=== PATIENT | female | born 1950 | race Caucasian/White ===

== ENCOUNTER 2017-10-01 09:30 | Outpatient (RCR) | payer MEDICARE, OTHER ==
[2012-03-29 09:00] VITALS: BP 142/88
[~2017-10-01 09:30] MED LIST: AVONEX33 MCG IM; CLONAZEPAM0.5 M1 PO; LEVEMIR100 U/ML; LISINOPRIL20 MG PO; LOW DOSE ASPIRI81 MG PO; MULTIVITAMIN FO1 CAP PO; NEURONTIN300 MG PO; NORCO 325 MG-51 TAB PO; NOVOLOG FLEX100 U/ML; PERCOCET 325 MG1 TA2 PO; SERAX PO; SOMA250 MG PO; SYNTHROID0.025 MG; ZANAFLEX4 M1 PO
== END 2017-10-01 10:00 | disposition still patient (30) ==
LOC: PT 09:30
DX: M54.9 Dorsalgia, unspecified (principal)
CPT/HCPCS: G8985-GP

== ENCOUNTER → 2018-11-23 | Outpatient (CLI) | payer MEDICARE, OTHER ==
[2018-11-22 11:23] VITALS: BP 111/70
[~2018-11-23] MED LIST changes: +B COMPLEX1 EACH PO; +CALCIUM 600 MG-1 TAB PO; +CHANTIX 0.5MG0.5 MG PO; +CRANBERRY500 M3 PO; +CYMBALTA30 M1 PO; +GLUCOPHAGE500 MG/TAB PO; +IPRATROPIUM BROM3 M1 IH; +MAGNESIUM CHLOR64 MG PO; +NATURAL VITAM1000 MG PO; +NATURE'S BLEN2000 IU PO; +NEURONTIN300 M1 PO; -NEURONTIN300 MG PO; +PRAVASTATIN SOD10 MG PO; +ROCEPHIN 2 G2 G/VIAL IV; +SERAX 10MG10 MG/CAP PO; -SERAX PO; +SINGULAIR PO; -SOMA250 MG PO; +SOMA350 M1 PO; -SYNTHROID0.025 MG; +SYNTHROID0.05 MG PO; +ULTRAM50 M1 PO; +VITAMIN E1000 UNI1 PO
[2018-11-23 11:56] LABS: HEMATOCRIT 37.5 % (37.0-47.0); MEAN PLATELET VOLUME 9.7 fl (7.4-10.4); RED CELL DISTRIBUTION WIDTH 13.1 % (11.5-14.5); WHITE BLOOD COUNT 6.8 K/mm3 (4.8-10.8)
[2018-11-23 12:17] LABS: ALBUMIN 3.8 g/dL (3.5-5.0); CALCIUM 9.4 mg/dL (8.4-10.2); POTASSIUM 4.1 mmol/L (3.6-5.0); TOTAL BILIRUBIN 0.3 mg/dL (0.2-1.3); TOTAL PROTEIN 6.6 g/dL (6.3-8.2)
== END ==
LOC: LAB 11:02
DX: M46.40 Discitis, unspecified, site unspecified (principal)

== ENCOUNTER → 2018-12-01 | Outpatient (CLI) | payer MEDICARE, OTHER ==
[2018-11-30 12:06] VITALS: BP 143/84
[2018-12-01 11:23] LABS: HEMATOCRIT 39.1 % (37.0-47.0); HEMOGLOBIN 12.6 g/dL (12.5-16.0); MEAN PLATELET VOLUME 9.5 fl (7.4-10.4); RED BLOOD COUNT 4.13 M/mm3 (4.10-5.30); RED CELL DISTRIBUTION WIDTH 13.6 % (11.5-14.5); WHITE BLOOD COUNT 6.8 K/mm3 (4.8-10.8)
[2018-12-01 11:26] LABS: ALBUMIN 3.8 g/dL (3.5-5.0); CALCIUM 9.6 mg/dL (8.4-10.2); POTASSIUM 4.4 mmol/L (3.6-5.0); TOTAL BILIRUBIN 0.4 mg/dL (0.2-1.3); TOTAL PROTEIN 6.8 g/dL (6.3-8.2)
== END ==
LOC: LAB 10:47
DX: M46.40 Discitis, unspecified, site unspecified (principal)

== ENCOUNTER → 2018-12-07 | Outpatient (CLI) | payer MEDICARE, OTHER ==
[2018-12-06 11:32] VITALS: BP 118/80
[2018-12-07 09:21] LABS: HEMOGLOBIN 12.3 g/dL (12.5-16.0); MEAN PLATELET VOLUME 10.3 fl (7.4-10.4); RED BLOOD COUNT 4.01 M/mm3 (4.10-5.30); RED CELL DISTRIBUTION WIDTH 13.8 % (11.5-14.5); WHITE BLOOD COUNT 6.2 K/mm3 (4.8-10.8)
[2018-12-07 09:26] LABS: ALBUMIN 3.7 g/dL (3.5-5.0); CALCIUM 9.4 mg/dL (8.4-10.2); POTASSIUM 4.6 mmol/L (3.6-5.0); TOTAL BILIRUBIN 0.3 mg/dL (0.2-1.3); TOTAL PROTEIN 6.5 g/dL (6.3-8.2)
== END ==
LOC: LAB 07:51
DX: M46.40 Discitis, unspecified, site unspecified (principal)

== ENCOUNTER → 2018-12-14 | Outpatient (CLI) | payer MEDICARE, OTHER ==
[2018-12-14 09:59] LABS: HEMATOCRIT 39.5 % (37.0-47.0); HEMOGLOBIN 12.7 g/dL (12.5-16.0); MEAN PLATELET VOLUME 9.9 fl (7.4-10.4); RED BLOOD COUNT 4.2 M/mm3 (4.10-5.30); WHITE BLOOD COUNT 5.2 K/mm3 (4.8-10.8)
[2018-12-14 10:06] LABS: CALCIUM 9.3 mg/dL (8.4-10.2); POTASSIUM 4.3 mmol/L (3.6-5.0); TOTAL BILIRUBIN 0.4 mg/dL (0.2-1.3)
[2018-12-16 09:05] VITALS: BP 115/64
== END ==
LOC: LAB 09:20
DX: M46.40 Discitis, unspecified, site unspecified (principal)

== ENCOUNTER → 2018-12-21 | Outpatient (CLI) | payer MEDICARE, OTHER ==
[2018-12-20 09:28] VITALS: BP 136/86
[2018-12-21 09:45] LABS: HEMATOCRIT 38.1 % (37.0-47.0); HEMOGLOBIN 12.2 g/dL (12.5-16.0); MEAN PLATELET VOLUME 9.6 fl (7.4-10.4); RED BLOOD COUNT 4.02 M/mm3 (4.10-5.30); RED CELL DISTRIBUTION WIDTH 14.2 % (11.5-14.5); WHITE BLOOD COUNT 6.9 K/mm3 (4.8-10.8)
[2018-12-21 10:18] LABS: ALBUMIN 3.7 g/dL (3.5-5.0); CALCIUM 9.1 mg/dL (8.4-10.2); POTASSIUM 4.4 mmol/L (3.6-5.0); TOTAL BILIRUBIN 0.3 mg/dL (0.2-1.3); TOTAL PROTEIN 6.3 g/dL (6.3-8.2)
== END ==
LOC: LAB 09:30
PROVIDERS: Family Medicine
DX: M46.40 Discitis, unspecified, site unspecified (principal)

== ENCOUNTER 2018-12-24 09:06 | Outpatient (RCR) | payer MEDICARE, OTHER ==
[2018-11-17 11:35] VITALS: BP 132/83
[2018-11-18 10:59] VITALS: BP 133/101
[2018-11-19 11:02] VITALS: BP 114/81
[2018-11-20 11:44] VITALS: BP 142/94
[2018-11-21 11:07] VITALS: BP 118/70
[2018-11-22 11:00] VITALS: BP 119/75
[2018-11-22 11:23] VITALS: BP 111/70
[2018-11-23 11:15] VITALS: BP 87/53
[2018-11-24 11:38] VITALS: BP 126/74
[2018-11-24 11:46] VITALS: BP 126/74
[2018-11-25 11:15] VITALS: BP 122/81
[2018-11-26 12:36] VITALS: BP 122/81
[2018-11-27 11:21] VITALS: BP 120/57
[2018-11-28 09:05] VITALS: BP 134/91
[2018-11-29 08:08] VITALS: BP 112/72
[2018-11-30 12:06] VITALS: BP 143/84
[2018-12-01 11:09] VITALS: BP 124/76
[2018-12-02 12:01] VITALS: BP 146/88
[2018-12-03 07:56] VITALS: BP 163/101
[2018-12-04 11:09] VITALS: BP 119/73
[2018-12-05 11:22] VITALS: BP 132/83
[2018-12-06 11:32] VITALS: BP 118/80
[2018-12-07 10:00] VITALS: BP 112/71
[2018-12-08 12:53] VITALS: BP 160/96
[2018-12-09 06:48] VITALS: BP 129/84
[2018-12-10 09:33] VITALS: BP 140/86
[2018-12-11 09:22] VITALS: BP 127/77
[2018-12-12 09:00] VITALS: BP 122/89
[2018-12-13 09:29] VITALS: BP 129/83
[2018-12-14 09:15] VITALS: BP 130/87
[2018-12-15 10:18] VITALS: BP 110/69
[2018-12-16 09:05] VITALS: BP 115/64
[2018-12-17 09:06] VITALS: BP 114/78
[2018-12-18 09:04] VITALS: BP 108/73
[2018-12-19 09:19] VITALS: BP 130/68
[2018-12-20 09:28] VITALS: BP 136/86
[2018-12-21 09:30] VITALS: BP 113/65
[2018-12-22 09:15] VITALS: BP 103/74
[2018-12-23 09:13] VITALS: BP 128/66
[~2018-12-24] VITALS: Ht 162.6 cm; Wt 63.6 kg
[2018-12-24 09:20] VITALS: BP 97/62
== END 2018-12-24 09:30 | disposition home or self-care (01) ==
LOC: AMSURD 09:06
DX: Z45.2 Encounter for adjustment and management of vascular access device (principal); M46.40 Discitis, unspecified, site unspecified
CPT/HCPCS: J0696